=== PATIENT | female | born 1955 | race African-American/Black ===

== ENCOUNTER 2018-04-23 09:53 | Emergency (ER) | payer MEDICARE, OTHER, MEDICAID ==
[~2018-04-23] VITALS: Ht 172.7 cm; Wt 73.0 kg
[2018-04-23] MEDS ORDERED: SODIUM CHLORIDE 0.9% 1,000 ML IV ONE (10:48)
[2018-04-23] MEDS ORDERED: HALOPERIDOL 5MG TABLET PO ONE (11:30)
[2018-04-23] MEDS ORDERED: LORAZEPAM 2MG/ML CPJ IM STA (13:49)
[2018-04-23] MEDS ORDERED: HALOPERIDOL LACTATE 5MG/ML VIAL IM ONE (14:00)
[2018-04-23 15:47] LABS: BASOPHILS % 0.4 % (0.0-2.0); EOSINOPHILS % 1.1 % (0.0-5.0); HEMATOCRIT. 40.7 % (36.0-48.0); HEMOGLOBIN. 13.3 g/dL (12.0-16.0); LYMPHOCYTES % 18.3 % (20.0-50.0); MEAN CORPUSCULAR HEMOGLOBIN 27.4 pg (28.0-32.0); MEAN CORPUSCULAR VOLUME 84.2 fL (81.0-99.0); MEAN PLATELET VOLUME 9.9 fl (7.4-10.4); MONOCYTES % 8.1 % (2.0-8.0); NEUTROPHILS % 72.1 % (40.0-76.0); PLATELET 161 x1000/uL (130-400); RED BLOOD CELL COUNT 4.84 mill/uL (4.2-5.4); RED CELL DISTRIBUTION WIDTH 15.5 % (11.6-14.6)
[2018-04-23 15:53] LABS: CHLORIDE 106 mEq/L (98-107)
[2018-04-23 15:54] LABS: INR 1.1; PROTHROMBIN TIME 11.1 sec (9.1-11.1)
[2018-04-23 15:57] LABS: ETHANOL BLOOD < 10 mg/dL
[2018-04-24 19:08] VITALS: BP 152/71
== END 2018-04-24 19:08 | disposition home or self-care (01) ==
LOC: EDBD 10:02 → ER 10:02
DX: S02.2XXA Fracture of nasal bones, initial encounter for closed fracture (principal); S00.83XA Contusion of other part of head, initial encounter; S00.511A Abrasion of lip, initial encounter; Y07.01 Husband, perpetrator of maltreatment and neglect; Y04.2XXA Assault by strike against or bumped into by another person, initial encounter; Y93.89 Activity, other specified; Y92.098 Other place in other non-institutional residence as the place of occurrence of the external cause; F10.129 Alcohol abuse with intoxication, unspecified; Y90.0 Blood alcohol level of less than 20 mg/100 ml; M47.812 Spondylosis without myelopathy or radiculopathy, cervical region; K01.1 Impacted teeth
CPT/HCPCS: 36415; 70450; 70486; 71045; 72125; 80053; 83605; 84484; 85025; 85610; 87186; 96372; 99284; J1630; J2060; J7030